=== PATIENT | female | born 1965 ===

== ENCOUNTER 2017-05-15 01:06 | Emergency (ER) | payer SELFPAY ==
[2017-05-15 01:29] VITALS: RESP 18
[2017-05-15] MEDS ORDERED: Labetalol 25mg/5ml Syringe IV STA (01:42)
[2017-05-15] MEDS ORDERED: Labetalol 25mg/5ml Syringe ONE (01:54)
[2017-05-15 01:57] LABS: BASO # 0.1 K/uL (0.0-0.2); BASO % 0.5 % (0.0-2.0); EOS # 0.2 K/uL (0.0-0.7); EOS % 1.6 % (0.0-4.0); HEMOGLOBIN 14.6 g/dL (11.0-16.0); LYMPH # 3.1 K/uL (1.0-4.3); LYMPH % 25.6 % (20.0-40.0); MEAN CELL VOLUME 88.1 fL (81.0-99.0); MEAN CORPUSCULAR HEMOGLOBIN 29.6 pg (27.0-31.0); MEAN CORPUSCULAR HGB CONC 33.6 g/dL (33.0-37.0); MEAN PLATELET VOLUME 7.9 fL (7.2-11.7); MONO # 0.6 K/uL (0.0-0.8); MONO % 4.6 % (0.0-10.0); NEUT # 8.3 K/uL (1.8-7.0); NEUT % 67.7 % (50.0-75.0); RBC 4.95 Mil/uL (3.80-5.20); RED CELL DISTRIBUTION WIDTH 13.1 % (11.5-14.5); WHITE BLOOD COUNT 12.2 K/uL (4.8-10.8)
[2017-05-15 02:06] LABS: INR 0.9; PROTHROMBIN TIME 9.9 SECONDS (9.7-12.2)
[2017-05-15 02:08] LABS: ALB/GLOB RATIO 1.1 (1.0-2.1); ALBUMIN 4.7 g/dL (3.5-5.0); ALT/SGPT 41 U/L (9-52); AST/SGOT 32 U/L (14-36); BLOOD UREA NITROGEN 16 mg/dL (7-17); CALCIUM 9.3 mg/dl (8.6-10.4); GFR AFRICAN-AMERICAN > 60; GFR NON-AFRICAN AMERICAN > 60
--- NOTE | 2017-05-15 02:17 | C.PDOC ---
History Of Present Illness Patient c/o right sided epistaxis started 1 h prior to arrival. Patient admits intermittent epistaxis from the right nare for the last 2 weeks. Patient has h/ o HTN on unknown BP meds fro [facility], lives in [place] for the last 10 yrs, has no PMD here. Patient denies headache, chest pain or SOB. Chief Complaint (Nursing): ENT Problem History Per: Patient Onset/Duration Of Symptoms: Hrs (1) Current Symptoms Are (Timing): Still Present Anticoagulant/Antiplatlet Use?: No Recent Aspirin Use: No Past Medical History Reviewed: Historical Data, Nursing Documentation, Vital Signs Vital Signs: Last Vital Signs Temp 97.7 F 05/15/17 01:24 Pulse 87 05/15/17 02:31 Resp 18 05/15/17 02:31 BP 162/87 H 05/15/17 02:31 Pulse Ox 97 05/15/17 02:50 - Medical History PMH: HTN Denies: Chronic Kidney Disease Family History: States: No Known Family Hx - Social History Hx Alcohol Use: Yes Hx Substance Use: No - Immunization History Hx Tetanus Toxoid Vaccination: No Hx Influenza Vaccination: No Hx Pneumococcal Vaccination: No Review Of Systems Except As Marked, All Systems Reviewed And Found Negative. Physical Exam - Physical Exam Appears: Other (uncomfortable, anxious) Skin: Normal Color, Warm Head: Atraumatic, Normacephalic Eye(s): bilateral: Normal Inspection Ear(s): Bilateral: Normal Nose: Epistaxis ( large blood clot was removed from the right nare, still with epistaxis) Oral Mucosa: Moist Tongue: Normal Appearing Lips: Normal Appearing Gingiva: Normal Appearing Throat: Other (blood seen on the posterior pharynx) Neck: Normal, Normal ROM Cardiovascular: No Rhythm Regular (tachycardic) Respiratory: Normal Breath Sounds Gastrointestinal/Abdominal: Normal Exam, Soft, No Tenderness Extremity: Normal ROM, No Tenderness Neurological/Psych: Oriented x3, Normal Speech, Normal Cognition ED Course And Treatment - Laboratory Results Result Diagrams: 05/15/17 01:53 05/15/17 01:53 O2 Sat by Pulse Oximetry: 97 Progress Note: labs, Labetalol IV, nose packing with 7.5 inch Rapid Rhino. On re -evaluation patient feels better, BP is down, no more active epistaxis. Augmentin po given. Patient wasb instructed to f/u with ENT on 05/16/2017. Disposition - Disposition Referrals: Reynold Walsh MD [Staff Provider] - [facility] [Outside] Disposition: HOME/ ROUTINE Disposition Time: 02:48 Condition: IMPROVED Additional Instructions: Follow up in Clinic and with ENT specialist within 1-2 days. Return to ED if feel worse. Prescriptions: Amoxicillin/Clavulanate [Augmentin 875 MG-125 MG] 1 tab PO BID #10 tab Carvedilol [Coreg] 12.5 mg PO BID #60 tab Instructions: High Blood Pressure in Adults, Nosebleeds (DC) Forms: [employer] (Sinhala) Print Language: CZECH - Clinical Impression Clinical Impression: Hypertension, Epistaxis
[2017-05-15] MEDS ORDERED: Amoxicillin-Clav 875-125 mg Tab PO STA (02:39)
[2017-05-15 02:50] VITALS: O2SAT 97
[2017-05-15] MEDS ORDERED: Amoxicillin-Clav 875-125 mg Tab PO ONE (02:50)
[2017-05-15 03:10] VITALS: BP 175/91; PULSE 89; TEMP 98.1
== END 2017-05-15 03:10 | disposition home or self-care (01) ==
LOC: C.ER 01:06
DX: I10 Essential (primary) hypertension (principal); R04.0 Epistaxis